=== PATIENT | female | born 1990 | race African-American/Black ===

== ENCOUNTER 2023-10-02 13:48 | Emergency (ER) | payer MEDICAID ==
[~2023-10-02] VITALS: Ht 157.5 cm; Wt 147.0 kg
[2023-10-02 13:55] VITALS: O2SAT 98
[2023-10-02 18:05] VITALS: BP 143/89; PULSE 85; RESP 18; TEMP 98.1
== END 2023-10-02 18:05 | disposition home or self-care (01) ==
LOC: ER 13:48
DX: H92.01 Otalgia, right ear (principal); Z90.49 Acquired absence of other specified parts of digestive tract
CPT/HCPCS: 99281